=== PATIENT | female | born 1985 | race Caucasian/White ===

== ENCOUNTER 2016-06-26 12:55 | Emergency (ER) | payer OTHER ==
[~2016-06-26] VITALS: Ht 162.6 cm; Wt 62.6 kg
[2016-06-26 13:09] VITALS: BP 129/83
--- NOTE | 2016-06-26 13:14 | ED GENERAL ADULT ---
History of Present Illness General Chief Complaint: General Adult Stated Complaint: PRESCRIPTION REFILL Source: patient Exam Limitations: no limitations Vital Signs & Intake/Output Vital Signs & Intake/Output Vital Signs Date Time Temp Pulse Resp B/P Pulse O2 O2 Flow FiO2 Ox Delivery Rate 06/26 1309 97.9 116 18 129/83 98 Room Air Reconcile Medications Clonazepam (Klonopin) 2 MG TABLET 1 TAB PO TID PRN ANXIETY Escitalopram Oxalate (Lexapro) 10 MG TABLET 1 TAB PO DAILY ANXIETY Triage Note: PT STATES THAT SHE RAN OUT OF HER CLONAZEPAM AND LEXAPRO YESTERDAY , HAS AN APPOINTMENT WITH 07/05 Triage Nurses Notes Reviewed? yes Onset: Abrupt Duration: day(s): (3), constant Timing: recent history Injury Environment: home Severity: mild, moderate Severity Numbers: 5 No Modifying Factors: none Associated Symptoms: denies : No Patient currently breastfeeds: No HPI: 30-year-old female presents requesting a medication refill of her Klonopin 2 mg 3 times a day and Lexapro 10 mg once a day but she states she ran out of yesterday. She states that she's had a difficult weekend after the loss of her grandmother 2 days ago. She states she is scheduled to see a new psychiatrist on July 05. She declines her she does speak with crisis she denies any chest pain shortness of breath abdominal pain fever chills nausea vomiting. There are no modifying factors or associated symptoms otherwise. (TAY MATT) Past History Travel History Traveled to [place] past 21 day No Medical History Any Pertinent Medical History? 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 No (TAY MATT) Review of Systems Review of Systems Constitutional: Reports: see HPI. All Other Systems: Reviewed and Negative Comments Review of systems: See HPI, All other systems negative. Constitutional, no chills no fever, no malaise HEENT: No visual changes no sore throat no congestion Cardiovascular: No chest pain , no palpitation Skin, no rashes, no change in skin Respiratory: No dyspnea no cough no sputum GI: No nausea no vomiting, no diarrhea, : No dysuria Muscle skeletal: No joint pain, no back pain, no neck pain, Neurologic: No numbness nno headache Psych: No stress Heme/endocrine: No bruising no bleeding Immunology: No lymphadenopathy (TAY MATT) Physical Exam Physical Exam General Appearance: well developed/nourished, alert, awake Comments: Well-developed well-nourished person in no acute distress HEENT: Normal EENT exam; PERRL, EOMI,. HEAD is atraumatic. moist mucous membranes. Neck: Supple, normal range of motion Back: Nontender. Full range of motion Cardiovascular: Regular rate and rhythms no murmurs rubs Respiratory: No respiratory distress. Patient speaking in full complete sentences. Breath sounds clear to auscultation bilaterally: NO W/R/R Extremity: No edema, full range of motion of extremities Neuro: Alert oriented x3, motor sensory normal, There were no obvious focal neurologic abnormalities. Skin: No appreciable rash on exposed skin, skin is warm and dry. Psych: Mood and affect is normal, memory and judgment is normal. Core Measures ACS in differential dx? No CVA/TIA Diagnosis: No Severe Sepsis Present: No Septic Shock Present: No (TAY MATT) Progress Differential Diagnoses I considered the following diagnoses in my evaluation of the patient: medication refill anxiety Plan of Care: ct information technology technician reviewed, pt scheduled to see pysc on 07/05. 5 day supply of klonopin provided. pt declining wishing to speak with crisis Initial ED EKG: none (TAY MATT) Departure Departure Time of Disposition: 1314 Disposition: HOME OR SELF CARE Condition: Stable Clinical Impression Primary Impression: Medication refill Referrals: PATIENT HAS NO PRIMARY CARE DR (PCP/Family) Additional Instructions: FOLLOW UP WITH YOUR PHYSICIAN SCHEDULED ON THE . YOUR MEDICATIONS WERE SENT TO [facility]. Departure Forms: Customer Survey General Discharge Information Prescriptions: Current Visit Scripts Escitalopram Oxalate (Lexapro) 1 TAB PO DAILY #10 TAB Clonazepam (Klonopin) 1 TAB PO TID PRN ANXIETY #15 TAB (TAY MATT) PA/PITCH FLAKER Co-Sign Statement Statement: ED Attending supervision documentation- [] I saw and evaluated the patient. I have also reviewed all the pertinent lab results and diagnostic results. I agree with the findings and the plan of care as documented in the PA's/PITCH FLAKER's documentation. x I have reviewed the ED Record and agree with the PA's/PITCH FLAKER's documentation. [] Additions or exceptions (if any) to the PAs/PITCH FLAKER's note and plan are summarized below: [] (ERYN EDMOND,JUVENAL) Critical Care Note Critical Care Note Critical Care Time: non-applicable (MARINA CHOWDARY,TAY)
[2016-06-26] MEDS ORDERED: KLONOPIN2 M1 PO ×2 (13:17→13:19)
[2016-06-26] MEDS ORDERED: LEXAPRO10 M1 PO (13:17)
== END 2016-06-26 13:32 ==
LOC: ERH 12:55
DX: Z76.0 Encounter for issue of repeat prescription (principal)
CPT/HCPCS: 99281

== ENCOUNTER 2016-07-29 10:37 | Emergency (ER) | payer OTHER ==
[~2016-07-29] VITALS: Ht 165.1 cm; Wt 62.1 kg
[~2016-07-29 10:37] MED LIST: KLONOPIN2 M1 PO; LEXAPRO10 M1 PO
[2016-07-29 10:43] VITALS: BP 98/66
[2016-07-29] MEDS ORDERED: PROAIR HFA8.5 GM INH (11:13)
[2016-07-29] MEDS ORDERED: ADVAIR 250-501 EACH INH (11:13)
[2016-07-29] MEDS ORDERED: ROZEREM8 M1 PO (11:14)
[2016-07-29] MEDS ORDERED: NICOTINE PATCH1 EAC2 TOP (11:14)
[2016-07-29] MEDS ORDERED: ALPRAZOLAM2 M2 PO (11:14)
--- NOTE | 2016-07-29 11:20 | ED GENERAL ADULT ---
History of Present Illness General Chief Complaint: General Adult Stated Complaint: MED REFILL Source: patient, old records Exam Limitations: no limitations Vital Signs & Intake/Output Vital Signs & Intake/Output Vital Signs Date Time Temp Pulse Resp B/P Pulse O2 O2 Flow FiO2 Ox Delivery Rate 07/29 1043 98.1 98 20 98/66 98 Room Air Room Air Allergies Coded Allergies: shellfish derived (Severe, ANAPHYLAXIS 07/29/16) amoxicillin (Intermediate, HIVES 07/29/16) hydrocodone (From VICODIN) (Intermediate, ITCHING 07/29/16) Reconcile Medications Albuterol Sulfate (Proair Hfa) 90 MCG HFA.AER.AD 2 PUF INH Q4-6 PRN PRN BREATHING PROBLEMS (Reported) Alprazolam 2 MG TABLET 1 TAB PO TIDPRN PRN ANXIETY (Reported) Clonazepam (Klonopin) 2 MG TABLET 1 TAB PO TID PRN ANXIETY Escitalopram Oxalate (Lexapro) 10 MG TABLET 1 TAB PO DAILY ANXIETY Fluticasone/Salmeterol (Advair 250-50 Diskus) 250 MCG-50 MCG/DOSE BLST.W.DEV 1 PUF INH BID BREATHING PROBLEMS (Reported) Nicotine (Nicotine Patch) 14 MG/24 HOUR PATCH.TD24 1 PAT TOP DAILY SMOKING ( Reported) Ramelteon (Rozerem) 8 MG TABLET 1 TAB PO QPM SLEEP (Reported) Triage Note: PT TO ED FOR "MED REFILL, PROAIR, REMERON FOR SLEEP, XANAX". HAS APPT WITH [facility] IN [place] ON August. Triage Nurses Notes Reviewed? yes : No Patient currently breastfeeds: No HPI: Patient presents for refill of her medications. Patient is unable to see her doctor until August 16. Patient ran out of her medications. Patient denies suicidal or homicidal ideations. Patient also states that her asthma is getting worse and she thinks that she might have bronchitis. Patient denies fevers or chills. Patient does have a nonproductive cough. Patient is wheezing however she ran out of her Pro Air. Patient states that once prior she did not get her bronchitis treated and turned and pneumonia and she was admitted to the hospital for 17 days. Patient denies any chest pain or chest tightness. There are no effusions or chills. Past History Travel History Traveled to [place] past 21 day No Medical History Any Pertinent Medical History? see below for history Neurological: NONE EENT: NONE Cardiovascular: NONE Respiratory: asthma Gastrointestinal: NONE Hepatic: NONE Renal: NONE Musculoskeletal: NONE Psychiatric: anxiety, depression Endocrine: NONE Blood Disorders: NONE Cancer(s): NONE SALES ACCOUNT LEADER/Reproductive: NONE Surgical History Surgical History: non-contributory Psychosocial History What is your primary language Arabic Tobacco Use: Quit >30 days ago ETOH Use: denies use Illicit Drug Use: denies illicit drug use Family History Hx Contributory? No Review of Systems Review of Systems Constitutional: Reports: no symptoms. EENTM: Reports: no symptoms. Respiratory: Reports: see HPI, cough, short of breath, wheezing. Cardiovascular: Reports: no symptoms. GI: Reports: no symptoms. Genitourinary: Reports: no symptoms. Musculoskeletal: Reports: no symptoms. Skin: Reports: no symptoms. Neurological/Psychological: Reports: see HPI, anxiety. Hematologic/Endocrine: Reports: no symptoms. Immunologic/Allergic: Reports: no symptoms. All Other Systems: Reviewed and Negative Physical Exam Physical Exam General Appearance: well developed/nourished, alert, awake Head: atraumatic, normal appearance Eyes: Bilateral: PERRL, EOMI. Ears, Nose, Throat: normal pharynx, POOR DENTITION Respiratory: decreased breath sounds, wheezing Cardiovascular: regular rate/rhythm, normal peripheral pulses Gastrointestinal: normal bowel sounds, soft, non-tender Extremities: normal inspection, normal capillary refill, normal range of motion, no edema Neurologic/Psych: no motor/sensory deficits, awake, alert, oriented x 3, normal gait, normal mood/affect Lymphatic: no anterior cervical agusto Core Measures ACS in differential dx? No CVA/TIA Diagnosis: No Severe Sepsis Present: No Septic Shock Present: No Progress Differential Diagnoses I considered the following diagnoses in my evaluation of the patient: [ MEDICATION REFILL, BRONCHITIS] Plan of Care: Current Medications Sig/Merna Start time Last Medication Dose Stop Time Status Admin Albuterol Sulfate 3 ML ONCE ONE 07/29 1145 UNVr (Proventil) 07/29 1146 Ipratropium Mcgraws 2.5 ML ONCE ONE 07/29 1145 UNVr (Atrovent) 07/29 1146 Initial ED EKG: none Departure Departure Disposition: HOME OR SELF CARE Condition: Stable Clinical Impression Primary Impression: Medication refill Secondary Impressions: Bronchitis Referrals: AZUL MOJICA APRN (PCP/Family) Additional Instructions: TAKE MEDS PRESCFRIBED FOLLOW UP AT YOUR APPOINTMENT Departure Forms: Customer Survey General Discharge Information Critical Care Note Critical Care Note Critical Care Time: non-applicable
== END 2016-07-29 11:22 ==
LOC: ERH 10:37
DX: Z76.0 Encounter for issue of repeat prescription (principal); J40 Bronchitis, not specified as acute or chronic; Z87.891 Personal history of nicotine dependence
CPT/HCPCS: 1263

== ENCOUNTER 2016-08-26 11:54 | Emergency (ER) | payer OTHER ==
[~2016-08-26] VITALS: Ht 162.6 cm; Wt 62.6 kg
[~2016-08-26 11:54] MED LIST changes: +ADVAIR 250-501 EACH INH; +ALPRAZOLAM2 M2 PO; +NICOTINE PATCH1 EAC2 TOP; +PROAIR HFA8.5 GM INH; +ROZEREM8 M1 PO
[2016-08-26 11:59] VITALS: BP 135/86
--- NOTE | 2016-08-26 12:31 | ED GENERAL ADULT ---
History of Present Illness General Chief Complaint: General Adult Stated Complaint: MED REFILL Source: patient, old records Exam Limitations: no limitations Vital Signs & Intake/Output Vital Signs & Intake/Output Vital Signs Date Time Temp Pulse Resp B/P Pulse O2 O2 Flow FiO2 Ox Delivery Rate 08/26 1159 97.8 118 20 135/86 99 Room Air Allergies Coded Allergies: shellfish derived (Severe, ANAPHYLAXIS 07/29/16) amoxicillin (Intermediate, HIVES 07/29/16) hydrocodone (From VICODIN) (Intermediate, ITCHING 07/29/16) Reconcile Medications Albuterol Sulfate (Proair Hfa) 90 MCG HFA.AER.AD 2 PUF INH Q4-6 PRN PRN BREATHING PROBLEMS (Reported) Alprazolam 2 MG TABLET 1 TAB PO TIDPRN PRN ANXIETY (Reported) Escitalopram Oxalate (Lexapro) 10 MG TABLET 1 TAB PO DAILY ANXIETY Ramelteon (Rozerem) 8 MG TABLET 1 TAB PO QPM SLEEP (Reported) Triage Note: PT REQUESTS REFILL ON ALPRAZOLAM AND ROZEREM Triage Nurses Notes Reviewed? yes : No Patient currently breastfeeds: No HPI: patient returns to the third time for prescription of her benzodiazepine medication. She was seen here a month ago, received 60 tablets of Xanax. Previously she states that her primary care doctor was given is to her however they left the practice and she does not have a primary care doctor at this time. I explained to her that another doctor should've picked up her care and she should contact the primary care doctor for further medications. She describes feeling anxiousness and being on his medications for 7 years. She denies any withdrawal symptoms at this time except for anxiety, her last dose was last evening. She is not vomiting she is not confused. She has no other complaints. (ALEENA DOWNING) Past History Travel History Traveled to [place] past 21 day No Medical History Any Pertinent Medical History? see below for history Neurological: NONE EENT: NONE Cardiovascular: NONE Respiratory: asthma Gastrointestinal: NONE Hepatic: NONE Renal: NONE Musculoskeletal: NONE Psychiatric: anxiety, depression Endocrine: NONE Blood Disorders: NONE Cancer(s): NONE PRECISION ASSEMBLER/Reproductive: NONE Surgical History Surgical History: non-contributory Psychosocial History What is your primary language Yi Tobacco Use: Current Daily Use Daily Tobacco Use Amount/Type: =< 4 Cigarettes daily ETOH Use: denies use Illicit Drug Use: denies illicit drug use Family History Hx Contributory? No (ALEENA DOWNING) Review of Systems Review of Systems Constitutional: Reports: see HPI. EENTM: Reports: no symptoms. Respiratory: Reports: no symptoms. Cardiovascular: Reports: no symptoms. GI: Reports: no symptoms. Genitourinary: Reports: no symptoms. Musculoskeletal: Reports: no symptoms. Skin: Reports: no symptoms. Neurological/Psychological: Reports: see HPI. Hematologic/Endocrine: Reports: no symptoms. Immunologic/Allergic: Reports: no symptoms. All Other Systems: Reviewed and Negative (ALEENA DOWNING) Physical Exam Physical Exam General Appearance: well developed/nourished, anxious Comments: HEENT: Atraumatic, extraocular motion intact. Poor dentition Pinpoint pupils Neck: Supple, no lymphadenopathy Back: Nontender Respiratory: No respiratory distress Extremities: No edema, full range of motion Neuro: Alert and oriented x3 Psych: normal memory normal judgment. Skin: Warm and dry, no rash on exposed skin Core Measures ACS in differential dx? No CVA/TIA Diagnosis: No Severe Sepsis Present: No Septic Shock Present: No (ALEENA DOWNING) Progress Differential Diagnoses I considered the following diagnoses in my evaluation of the patient: Drug-seeking behavior Plan of Care: I'm concerned about patient's drug use, reviewed her CT [employer] website and she is getting multiple prescriptions from multiple providers from benzodiazepines and OxyContin. I discussed the case with Dr. Lawrence the ER attending and Scratch Brusher and we have agreed the patient should continue to get controlled substances from her primary care doctor only. There is concern of abuse and misuse of these medications. I discussed the patient possibility withdrawal symptoms, I have offered her Vistaril and she has declined. She left the emergency department prior to receiving discharge paperwork Initial ED EKG: none (ALEENA DOWNING) Departure Departure Disposition: HOME OR SELF CARE Condition: Stable Clinical Impression Primary Impression: Medication refill Secondary Impressions: Anxiety Referrals: AZUL MOJICA APRN (PCP/Family) Additional Instructions: Patient left prior to receiving discharge paperwork, it was recommended that she follows up with her primary care doctor for further medication refills as the ER cannot continue to prescribe her controlled substances Departure Forms: Customer Survey General Discharge Information (ALEENA DOWNING) PA/INFANT LEAD TEACHER Co-Sign Statement Statement: ED Attending supervision documentation- [] I saw and evaluated the patient. I have also reviewed all the pertinent lab results and diagnostic results. I agree with the findings and the plan of care as documented in the PA's/INFANT LEAD TEACHER's documentation. [x] I have reviewed the ED Record and agree with the PA's/INFANT LEAD TEACHER's documentation. [] Additions or exceptions (if any) to the PAs/INFANT LEAD TEACHER's note and plan are summarized below: [] (JOHNSON LAWRENCE DO) Critical Care Note Critical Care Note Critical Care Time: non-applicable (MILA CHOWDARY,ALEENA)
== END 2016-08-26 12:43 ==
LOC: ERH 11:54
DX: F41.9 Anxiety disorder, unspecified (principal); Z76.0 Encounter for issue of repeat prescription
CPT/HCPCS: 99281